=== PATIENT | male | born 1945 ===

== ENCOUNTER 2018-05-01 09:02 | Day surgery (SDC) | payer MEDICAID ==
[2018-05-01 09:45] VITALS: BMI 29.5
--- NOTE | 2018-05-01 10:24 | CP.SDSHP ---
Same Day Surgery H & P - History Proposed Procedure: colonoscopy - Previous Medical/Surgical History Cardiac: Hypertension Endocrine/Metabolic: Diabetes - Allergies Allergies: Allergies No Known Allergies Allergy (Verified 05/01/18 09:46) - Physical Exam Vital Signs: Vital Signs 05/01/18 09:25 Temperature 97.8 F Pulse Rate 71 Respiratory 16 Rate Blood Pressure 190/77 H O2 Sat by Pulse 97 Oximetry - Date & Time Date: 05/01/18 Time: 10:23 Short Stay Discharge - Short Stay Discharge Admitting Diagnosis/Reason for Visit: SCREENING Disposition: HOME/ ROUTINE
[2018-05-01] MEDS ORDERED: Lactated Ringer's 1,000 ML IV ONE (10:30)
[2018-05-01] MEDS ORDERED: Propofol 10 mg/ml Inj (20 ML) ONE (10:44)
[2018-05-01] MEDS ORDERED: Lidocaine Hydrochloride 5 ML INJ ONE (10:44)
[2018-05-01 11:24] VITALS: TEMP 97.7; O2SAT 100
[2018-05-01 11:43] VITALS: RESP 16
[2018-05-01 12:30] VITALS: BP 130/60; PULSE 58
== END 2018-05-01 12:30 | disposition home or self-care (01) ==
LOC: C.ENDO 09:02
PROVIDERS: ATTEND Colon & Rectal Surgery
DX: Z12.11 Encounter for screening for malignant neoplasm of colon (principal); K64.4 Residual hemorrhoidal skin tags
CPT/HCPCS: 45378; 82948; J2704; J7120